=== PATIENT | female | born 1995 | race Two or more races ===

== ENCOUNTER 2017-11-18 23:51 | Inpatient (IN) | payer OTHER ==
[~2017-11-18] VITALS: Ht 167.6 cm; Wt 70.4 kg
[2017-11-19] VITALS (12 sets, daily range): BP systolic 98–130; BP diastolic 46–73
[2017-11-19 00:56] LABS: Basophils # (auto) 0.1 uL; Eosinophils # (auto) 0.1 uL; Eosinophils % (auto) 1.3 % (0.0-7.0)
[2017-11-19 01:00] LABS: Basophils % (auto) 1.2 % (0.0-2.0); Hematocrit 21.1 % (36.0-46.0); Lymphocytes # (auto) 2.9 uL; Lymphocytes % (auto) 37.2 % (10.0-50.0); Mean Corpuscular Hemoglobin 20.6 pg (28.0-32.0); Mean Corpuscular Hgb Conc. 30.8 g/dL (32.0-36.0); Mean Corpuscular Volume 66.8 fL (80.0-100.0); Monocytes # (auto) 0.7 uL; Monocytes % (auto) 9.3 % (0.0-12.0); Platelet Count (auto) 401 10^3/uL (140-450); Red Blood Cells 3.15 10^6/uL (4.0-5.20); Red Cell Distribution Width 14.3 % (11.8-14.3); White Blood Cell 7.8 10^3/uL (4.4-10.8)
[2017-11-19 01:03] LABS: Hemoglobin 6.5 g/dL (12.2-16.2)
[2017-11-19 01:07] LABS: Albumin 3.9 g/dL (3.4-5.0)
[2017-11-19 01:10] LABS: Bilirubin, Total 0.2 mg/dL (0.2-1.0); Total Protein 7.5 g/dL (6.4-8.2)
[2017-11-19 01:11] LABS: Prothrombin Time 10.7 sec (9.27-12.13)
[2017-11-19] MEDS ORDERED: ACETAMINOPHEN 325 MG TAB PO PRN (04:15)
[2017-11-19] MEDS ORDERED: ONDANSETRON HCL 4 MG/2 ML VIAL IV PRN (04:15)
[2017-11-19] MEDS ORDERED: TEMAZEPAM 15 MG CAP PO PRN (04:15)
[2017-11-19] MEDS: FAMOTIDINE 20 MG TAB PO SCH ×2 (10:00→21:36)
[2017-11-19 10:32] LABS: Hematocrit 25.7 % (36.0-46.0); Hemoglobin 8.3 g/dL (12.2-16.2)
[2017-11-20 05:44] VITALS: BP 104/70
[2017-11-20 06:16] LABS: Basophils # (auto) 0 uL; Basophils % (auto) 0.5 % (0.0-2.0); Eosinophils # (auto) 0.1 uL; Eosinophils % (auto) 1.5 % (0.0-7.0); Hematocrit 28.4 % (36.0-46.0); Lymphocytes # (auto) 3.3 uL; Lymphocytes % (auto) 42.4 % (10.0-50.0); Mean Corpuscular Hemoglobin 22.9 pg (28.0-32.0); Mean Corpuscular Hgb Conc. 31.6 g/dL (32.0-36.0); Mean Corpuscular Volume 72.4 fL (80.0-100.0); Monocytes # (auto) 0.8 uL; Monocytes % (auto) 10.3 % (0.0-12.0); Neutrophils # (auto) 3.5 uL; Neutrophils % (auto) 45.3 % (37.0-80.0); Nucleated Red Blood Cells % 0.2 %; Platelet Count (auto) 394 10^3/uL (140-450); Red Blood Cells 3.92 10^6/uL (4.0-5.20); Red Cell Distribution Width 19.8 % (11.8-14.3); White Blood Cell 7.7 10^3/uL (4.4-10.8)
[2017-11-20 06:39] LABS: Albumin 3.8 g/dL (3.4-5.0); BUN/Creatinine Ratio 22.4; Bilirubin, Total 0.4 mg/dL (0.2-1.0); Calcium 8.6 mg/dL (8.5-10.1); Total Protein 7.1 g/dL (6.4-8.2)
[2017-11-20 08:48] VITALS: BP 100/67
[2017-11-20] MEDS: FAMOTIDINE 20 MG TAB PO SCH (10:00)
[2017-11-20 12:47] VITALS: BP 101/60
== END 2017-11-20 11:47 | disposition home or self-care (01) | DRG 761 ==
LOC: ER 23:55 → EEVIPCON 23:55 → OVERFLOW 23:56 → EEVIPCON 23:56 → WEST WING 11-19 10:55
PROVIDERS: ADMIT Nurse Practitioner; ATTEND Family Medicine
PROC: 30233N1 Transfusion of Nonautologous Red Blood Cells into Peripheral Vein, Percutaneous Approach (ICD-10-PCS; principal; 2017-11-19)
DX: N92.1 Excessive and frequent menstruation with irregular cycle (principal); D50.0 Iron deficiency anemia secondary to blood loss (chronic)
CPT/HCPCS: 36415; 36430; 76830; 76856; 80053; 81025; 84702; 85014; 85018; 85025; 85610; 85730; 86850; 86900; 86901; 86920